=== PATIENT | female | born 1970 | race Caucasian/White ===

== ENCOUNTER 2023-07-10 10:51 | Outpatient (REF) | payer BC, SELFPAY ==
--- NOTE | ~2023-07-10 | MM_ITS ---
EXAMINATION: MM DIAGNOSTIC DIGITAL BREAST TOMOSYNTHESIS, BILATERAL US BREAST LIMITED, RIGHT MAMMOGRAPHY: CLINICAL INFORMATION: Palpable abnormality 10:00 axis right breast, 52-year-old female. History of cysts in this region on prior ultrasound. COMPARISON: Mammography: 06/08/2022, 06/06/2021, 05/17/2021, and 05/13/2019 ([facility]) Ultrasound right breast 06/06/2021. ([facility]) TECHNIQUE: Digital breast tomosynthesis is performed in both the craniocaudal and mediolateral oblique views along with computer-aided detection (CAD). Synthesized 2D images are generated from the tomosynthesis. In addition to standard views, a full-field 3-D right mediolateral view was obtained, as well as 3-D spot compression right MLO and CC views. FINDINGS: The breasts are heterogeneously dense, which may obscure small masses (ACR BI-RADS breast composition Category c). In the 9:00 axis of the right breast, subjacent to the palpable BB marker, there is a oval isodense circumscribed mass measuring approximately 2.4 cm in diameter, suspicious for the known cysts in this region. In addition, in the retroareolar region, there is a second circumscribed oval mass measuring approximately 1.0 cm also suspicious for a cyst. There may be additional subtle subcentimeter cysts in the upper outer region right breast as well. We will evaluate these with ultrasound. There is otherwise no suspicious masses, suspicious grouped calcifications, or areas of architectural distortion in either breast. There are subtle vascular calcifications bilaterally. Left breast has a stable and unchanged parenchymal pattern. There are no skin or axillary abnormalities. ULTRASOUND: CLINICAL INFORMATION: Palpable abnormality right breast 9:00 axis, with previous cyst in this region. COMPARISON: [facility] right breast ultrasound 06/06/2021. TECHNIQUE: Targeted sonographic evaluation was performed using a high frequency linear transducer. Attention to the upper outer quadrant of the right breast was performed, to include the region of palpable concern. Selected archived documentation. FINDINGS: RIGHT BREAST: In the right breast, 9:00 axis, 5 cm from the nipple, there is a similar large simple cyst measuring 2.3 x 2.2 x 1.0 cm (previously measuring 1.5 x 1.4 x 0.7 cm). In the right breast 9:00 axis I cm from the nipple, there is a second simple cyst measuring 7 mm, previously not well seen. The previously seen smaller cyst directly abutting the large cyst at 9:00 is no longer evident. No evidence of solid mass, abnormal shadowing, or suspicious abnormality. MM/MM tomosynthesis diagnostic BI IMPRESSION: -There are no findings in either breast suspicious for malignancy. -Palpable focus in the right breast 9:00 axis is consistent with a slightly larger simple cyst measuring up to 2.3 cm, previously 1.5 cm. There are additional smaller cysts in the upper outer quadrant of the right breast, consistent with fibrocystic changes. These are benign. No further follow-up recommended. -Recommend the patient resume routine annual screening mammography. OVERALL ASSESSMENT: Mammography: BI-RADS 2 - Benign Findings Ultrasound: BI-RADS 2 - Benign Findings RECOMMENDATION: 1 year F/U This patient's information was entered into a reminder system with a target due date for their next mammogram. .
== END 2023-07-10 10:52 | disposition home or self-care (01) ==
LOC: HO.MAMMO 10:51
PROVIDERS: PCP Family Medicine; Visit Provider Family Medicine
DX: N64.4 Mastodynia (principal)
CPT/HCPCS: 76642; 77062; 77066

== ENCOUNTER → 2023-07-10 11:00 | Outpatient (BNV) | payer BC, SELFPAY | PROVIDERS: PCP Family Medicine; Visit Provider Radiology Diagnostic Radiology | DX: R92.8 Other abnormal and inconclusive findings on diagnostic imaging of breast (principal) | CPT/HCPCS: 76642; 77062; 77066 ==